=== PATIENT | male | born 1970 | race Caucasian/White ===

== ENCOUNTER 2021-06-21 00:01 | Emergency (ER) | payer OTHER ==
[2021-06-21] MEDS ORDERED: Nitroglycerin 0.4 MG Tab.SL SL ONE (06:30)
== END 2021-06-21 05:30 | disposition home or self-care (01) ==
LOC: LB.ED 00:01
DX: R07.2 Precordial pain (principal); Z88.5 Allergy status to narcotic agent
CPT/HCPCS: 36415; 80048; 84484; 85025; 93005; 99285-25